=== PATIENT | male | born 1945 | race Caucasian/White ===

== ENCOUNTER 2017-01-04 09:06 | Emergency (ER) | payer OTHER ==
--- NOTE | 2017-01-04 09:13 | EDPHY ---
HPI/HX/ROS/PE/MDM Narrative: CHIEF COMPLAINT: Abdominal pain HPI: This patient is a 71 year old man presenting with acute intermittent abdominal pain, onset two nights ago. The pain is localized periumbilically and left to the umbilicus. It woke him from sleep two nights ago and last night and is described as dull and rated 3-4/10 in severity. The pain kept him awake for 1 -2 hours. He continues to have full pain this morning, rated 1-2/10 in severity. It is associated with abdominal bloating, which has been a longstanding issue (over one year) for him. He denies nausea, vomiting, diarrhea , or fever. He has had normal bowel movements. His routine colonoscopies, last one year ago, were all normal. REVIEW OF SYSTEMS: Aside from elements discussed in the HPI, a comprehensive 10-point review of systems was reviewed and is negative. PMH: L4/5 laminectomy and decompression, atrial fibrillation s/p ablations (Perez and Briana), HTN, hip replacement SOCIAL HISTORY: PCP is Dr. Maldonado. Non-smoker. PHYSICAL EXAM: General:Patient is alert, in no acute distress. ENT:Eyes are normal to inspection. ENT inspection normal. Neck: Normal inspection. Full range of motion. Respiratory:No respiratory distress. Breath sounds normal bilaterally. Cardiovascular: Regular rate and rhythm. Strong peripheral pulses. Normal cap refill. Abdomen: Left upper quadrant discomfort/tenderness to palpation, no guarding or rebound. There are no peritoneal signs. There are normal bowel sounds. Back: Normal to inspection. No tenderness to palpation. Skin: Normal color. No rash. Warm and dry. Extremities: Normal appearance. Full range of motion. Neuro: Oriented x3. Normal motor function. Normal sensory function. ED Course: IMAGING Study: CT of the Abdomen Pelvis w/ IV contrast Indication: Abdominal pain Results: The results of the study are: No acute findings. No significant constipation. The study was read by the radiologist, Dr. Llamas. I viewed the images myself on the PACS system. No acute etiology diagnosed. Patient referred to gastroenterology. I also recommended Zantac, as directed [id number]. MDM: This patient presents with fairly longstanding abdominal discomfort that has been getting worse recently. On exam, his vital signs are normal and his abdomen is relatively benign. His lab work is normal, showing no evidence of anemia, pancreatitis or hepatitis. We performed a CT scan of his abdomen and pelvis which is negative for bowel obstruction, bowel perforation, appendicitis or diverticulitis. His aorta does not appear to be aneurysmal. On re- evaluation, the patient is comfortable and he is comfortable with the plan for outpatient follow-up. The etiology of his abdominal pain is unclear. - Data Points Laboratory Results: Laboratory Results 01/04/17 09:30 01/04/17 01/04/17 01/04/17 09:31 09:30 09:30 WBC 7.29 10^3/uL 10^3/uL (3.80-9.50) RBC 4.84 10^6/uL 10^6/uL (4.40-6.38) Hgb 15.8 g/dL g/dL (13.7-17.5) POC Hgb 16.3 gm/dL gm/dL (14.5-17.3) Hct 44.8 % % (40.0-51.0) POC Hct 48 % % (42.8-50.6) MCV 92.6 fL fL (81.5-99.8) MCH 32.6 pg pg (27.9-34.1) MCHC 35.3 g/dL g/dL (32.4-36.7) RDW 12.3 % % (11.5-15.2) Plt Count 212 10^3/uL 10^3/uL (150-400) MPV 10.8 fL fL (8.7-11.7) Neut % (Auto) 67.4 % % (39.3-74.2) Lymph % (Auto) 21.4 % % (15.0-45.0) [place] % (Auto) 10.0 % % (4.5-13.0) Eos % (Auto) 0.4 % L % (0.6-7.6) Baso % (Auto) 0.4 % % (0.3-1.7) Nucleat RBC Rel Count 0.0 % % (0.0-0.2) Absolute Neuts (auto) 4.91 10^3/uL 10^3/uL (1.70-6.50) Absolute Lymphs (auto) 1.56 10^3/uL 10^3/uL (1.00-3.00) Absolute Monos (auto) 0.73 10^3/uL 10^3/uL (0.30-0.80) Absolute Eos (auto) 0.03 10^3/uL 10^3/uL (0.03-0.40) Absolute Basos (auto) 0.03 10^3/uL 10^3/uL (0.02-0.10) Absolute Nucleated RBC 0.00 10^3/uL 10^3/uL (0-0.01) Immature Gran % 0.4 % % (0.0-1.1) Immature Gran # 0.03 10^3/uL 10^3/uL (0.00-0.10) POC Sodium 140 mEq/L mEq/L (134-144) POC Potassium 3.9 mEq/L mEq/L (3.3-5.0) POC Chloride 99 mEq/L mEq/L (96-108) POC BUN 13 mg/dL mg/dL (7-23) POC Creatinine 1.0 mg/dL mg/dL (0.8-1.5) POC Glucose 128 mg/dL H mg/dL (70-100) Total Bilirubin 1.0 mg/dL mg/dL (0.1-1.4) Conjugated Bilirubin 0.3 mg/dL mg/dL (0.0-0.5) Unconjugated Bilirubin 0.7 mg/dL mg/dL (0.0-1.1) AST 26 IU/L IU/L (17-59) ALT 35 IU/L IU/L (21-72) Alkaline Phosphatase 51 IU/L IU/L (38-126) Total Protein 7.6 g/dL g/dL (6.3-8.2) Albumin 4.6 g/dL g/dL (3.5-5.0) Lipase 179.0 IU/L IU/L (23-300) Medications Given: Discontinued Medications Sodium Chloride (Ns) 1,000 mls @ 0 mls/hr IV ONCE ONE PRN Reason: Wide Open Stop: 01/04/17 09:28 Last Admin: 01/04/17 09:30 Dose: 1,000 mls Point of Care Test Results: 01/04/17 09:31 POC Sodium 140 POC Potassium 3.9 POC Chloride 99 POC BUN 13 POC Creatinine 1.0 POC Glucose 128 H General Time Seen by Provider: 01/04/17 09:11 Initial Vital Signs: Initial Vital Signs Temperature (C) 36.9 C 01/04/17 09:08 Heart Rate 79 01/04/17 09:08 Respiratory Rate 18 01/04/17 09:08 Blood Pressure 164/87 H 01/04/17 09:08 O2 Sat (%) 96 01/04/17 09:08 O2 Delivery Mode Room Air Allergies/Adverse Reactions: No Known Allergies Allergy (Unverified 03/21/16 12:57) Home Medications: Medication Instructions Recorded Aspirin [Aspirin 81mg (*)] 81 mg PO DAILY 01/04/17 Dutasteride [Avodart 0.5 MG (*)] 0.5 mg PO 01/04/17 Fluticasone Hfa 110 Mcg [Flovent 12 gm IH 01/04/17 Hfa] Hydrochlorothiazide [HCTZ (*)] 25 mg PO DAILY 01/04/17 Metoprolol Tartrate [Lopressor 25 25 mg PO BID 01/04/17 mg (*)] Ramipril [Altace 5mg (*)] 10 mg PO 01/04/17 Simvastatin [Zocor] 40 mg PO 01/04/17 Tadalafil [Cialis] 5 mg PO 01/04/17 Departure - Departure Disposition: Home, Routine, Self-Care Clinical Impression: Abdominal pain Qualifiers: Abdominal location: periumbilical Qualified Code(s): R10.33 - Periumbilical pain Condition: Good Instructions: Acute Abdominal Pain (ED), Gas and Bloating (ED), Abdominal Pain (ED) Additional Instructions: Take [id number] Zantac, as directed. Follow up with gastroenterology for further evaluation. Return to the emergency department if you experience increasing abdominal pain, intractable vomiting, fever, or other concerns. Referrals: Shalini Maldonado MD [Primary Care Provider] - As per Instructions Yobani Osborne [place] [place] - As per Instructions ( Gastroenterology) Report Scribed for: Vega Valentino Report Scribed by: Jena Vogel Date of Report: 01/04/17 Time of Report: 09:13 Physician Review and Approval Statement: Portions of this note were transcribed by an ED scribe. I personally performed the history, physical exam, and medical decision making; and confirm the accuracy of the information in the transcribed note.
[2017-01-04] MEDS ORDERED: NS 1,000 ML IV ONE (09:27)
[2017-01-04] MEDS ORDERED: IOPAMIDOL (ISOVUE-300) 100 ML BTL IV ONE (09:35)
[2017-01-04 09:41] LABS: % IMMATURE GRANULYOCYTES 0.4 % (0.0-1.1); ABSOLUTE IMMATURE GRANULOCYTES 0.03 10^3/uL (0.00-0.10); ADD DIFF? NO; ADD MORPH? NO; ADD SCAN? NO; ATYPICAL LYMPHOCYTE FLAG 0 (0-99); FRAGMENT RBC FLAG 0 (0-99); HEMATOCRIT 44.8 % (40.0-51.0); HEMOGLOBIN 15.8 g/dL (13.7-17.5); LEFT SHIFT FLG 0 (0-99); LIPEMIA HEMOLYSIS FLAG 90 (0-99); MEAN CELL HEMOGLOBIN 32.6 pg (27.9-34.1); MEAN CELL HEMOGLOBIN CONCENTR. 35.3 g/dL (32.4-36.7); MEAN CELL VOLUME 92.6 fL (81.5-99.8); MEAN PLATELET VOLUME 10.8 fL (8.7-11.7); PLATELET CLUMPS FLAG 0 (0-99); PLATELET COUNT 212 10^3/uL (150-400); RED BLOOD CELL COUNT 4.84 10^6/uL (4.40-6.38); RED CELL DISTRIBUTION WIDTH 12.3 % (11.5-15.2)
[2017-01-04 09:55] LABS: ALBUMIN 4.6 g/dL (3.5-5.0); BILIRUBIN-CONJUGATED 0.3 mg/dL (0.0-0.5); BILIRUBIN-UNCONJUGATED 0.7 mg/dL (0.0-1.1); TOTAL PROTEIN 7.6 g/dL (6.3-8.2)
[2017-01-04 10:54] VITALS: BP 155/73; PULSE 74; RESP 15; TEMP 98.1; O2SAT 94
== END 2017-01-04 10:54 | disposition home or self-care (01) ==
DX: R10.33 Periumbilical pain (principal); I10 Essential (primary) hypertension; Z79.82 Long term (current) use of aspirin
CPT/HCPCS: 74177; 96360; 99285; Q9967; 82947-QW

== ENCOUNTER → 2017-01-14 | Outpatient (CLI) | payer OTHER | LOC: BMCIMAGING 14:29 | PROVIDERS: ATTEND Podiatrist Foot & Ankle Surgery | DX: M79.674 Pain in right toe(s) (principal); M79.89 Other specified soft tissue disorders; M10.071 Idiopathic gout, right ankle and foot | CPT/HCPCS: 86812-90 ==

== ENCOUNTER → 2017-01-22 | Outpatient (CLI) | payer OTHER | LOC: FIMAGING 09:25 | PROVIDERS: ATTEND Physician Assistant Medical | DX: I25.10 Atherosclerotic heart disease of native coronary artery without angina pectoris (principal); I10 Essential (primary) hypertension; Z95.0 Presence of cardiac pacemaker ==

== ENCOUNTER 2017-10-29 17:18 | Emergency (ER) | payer OTHER ==
[2017-10-29 17:22] VITALS: RESP 16; TEMP 97.7
--- NOTE | 2017-10-29 17:30 | CPEKG ---
Heart Rate: 76 RR Interval: 789 P-R Interval: 212 QRSD Interval: 114 QT Interval: 408 QTC Interval: 459 P [place]: 108 QRS [place]: -83 T Wave [place]: 66 EKG Severity - ABNORMAL ECG - EKG Impression: SINUS RHYTHM EKG Impression: LEFT ANTERIOR FASCICULAR BLOCK EKG Impression: LEFT VENTRICULAR HYPERTROPHY Electronically Signed By: Collette Amin 29-Oct-2017 20:43:13
--- NOTE | 2017-10-29 17:37 | EDPHY ---
H & P Time Seen by Provider: 10/29/17 17:28 HPI/ROS: CHIEF COMPLAINT: Facial numbness HISTORY OF PRESENT ILLNESS: This patient is a 72 year old male with history of hypertension and TIA complaining of right-sided facial numbness. He was driving home from [employer] this afternoon and noticed a sensation of mental fogginess. Associated with slight nausea and loss of appetite. He then developed numbness and a mild burning sensation to right cheek. Later, his was making dinner but he did not have appetite and his numbness persisted. Currently, the burning sensation and feeling of mental "fogginess" persist. He denies numbness or paresthesias in his extremities. He takes daily ASA but is not otherwise anticoagulated. No headache, chest pain, shortness of breath, vomiting, diarrhea, or other associated symptoms. REVIEW OF SYSTEMS: A 10 point review of systems was performed and is negative with the exception of the elements mentioned in the history of present illness. Past Medical/Surgical History: 1. History of atrial fibrillation s/p 5 ablations, now resolved. Pacer in place. 2. History of TIA 3. Spinal surgery 4. Hip replacements Social History: Nonsmoker. . Lives in [place]. Smoking Status: Never smoked Physical Exam: General Appearance: Alert, pleasant Eyes: Pupils equal and round, no conjunctival pallor or injection ENT, Mouth: Mucous membranes moist Neck: Normal inspection Respiratory: Lungs are clear to auscultation Cardiovascular: Regular rate and rhythm Gastrointestinal: Abdomen is soft and non-tender Neurological: Alert, oriented x3, cranial nerves II through XII intact, motor 5 /5, decreased sensation to light touch over 3cm area on right cheek, sensation to light touch otherwise intact, normal gait Skin: Warm and dry, no rash Extremities: Nontender, no pedal edema Psychiatric: Mood and affect normal Constitutional: Initial Vital Signs Temperature (C) 36.5 C 10/29/17 17:20 Heart Rate 82 10/29/17 17:20 Respiratory Rate 16 10/29/17 17:20 Blood Pressure 186/105 H 10/29/17 17:20 O2 Sat (%) 95 10/29/17 17:20 O2 Delivery Mode Room Air Allergies/Adverse Reactions: No Known Allergies Allergy (Verified 10/29/17 17:19) Home Medications: Medication Instructions Recorded Aspirin [Aspirin 81mg (*)] 81 mg PO DAILY 01/04/17 Dutasteride [Avodart 0.5 MG (*)] 0.5 mg PO 01/04/17 Fluticasone Hfa 110 Mcg [Flovent 12 gm IH 01/04/17 Hfa] Hydrochlorothiazide [HCTZ (*)] 25 mg PO DAILY 01/04/17 Metoprolol Tartrate [Lopressor 25 25 mg PO BID 01/04/17 mg (*)] Ramipril [Altace 5mg (*)] 10 mg PO 01/04/17 Simvastatin [Zocor] 40 mg PO 01/04/17 Tadalafil [Cialis] 5 mg PO 01/04/17 Medical Decision Making - Diagnostics EKG Interpretation: EKG interpreted by me reveals normal sinus rhythm, rate 76, LVH. Imaging Results: Head CT 10/29/17 17:28 Impression: There is no acute intracranial abnormality identified on this unenhanced CT evaluation. If there is further clinical concern regarding the patient's symptoms, MR imaging is suggested, if not otherwise contraindicated. Findings were discussed with COLLETTE AMIN MD at 18:10, on 10/29/2017. Imaging: Discussed imaging studies w/ rail car repair carman Radiologist ED Course/Re-evaluation: 72 y/o male with history of HTN and prior TIA presents with right-sided facial numbness and burning sensation. Exam reveals decreased sensation to light touch over 3cm area on right cheek. Very small area of numbness, doubt TIA, especially with other sx of fogginess and nausea, though TIA possible. Plan for EKG, CT head, labs including CBC, chemistries, troponin. Old medical record reviewed, carotid sono 01/1917: mild bilateral atherosclerosis at the carotid bulbs, no flow limiting stenosis. 18:[address] Gabriel, radiologist. CT head negative for acute processes. CT results d/w pt. 18:45 Reassessed patient. Continues to feel odd sensation in left cheek. Neuro exam remains unchanged. I doubt TIA/CVA, given limited area of distribution. Will have pt continue ASA, f/u PCP. Plan to d/c home in good condition. Follow up and return precautions discussed. He is comfortable with this plan. Differential Diagnosis: Altered mental status including but not limited to hypoglycemia, infectious process, electrolyte abnormality, head injury and intoxicants. - Data Points Laboratory Results: Laboratory Results 10/29/17 17:30 10/29/17 17:30 Departure - Departure Disposition: Home, Routine, Self-Care Clinical Impression: Right facial numbness Condition: Good Instructions: Transient Ischemic Attack (ED), Paresthesia (ED), Stroke (DC) Additional Instructions: 1. Attached, please find further information regarding strokes and TIAs ( transient ischemic attack, also known as "mini-strokes"). 2. Follow up with your primary care provider for further evaluation. Continue taking Aspirin as usual. 3. Return to the emergency department for increasing or persistent numbness, weakness or numbness in your extremities, increased confusion, severe headache, difficulty speaking, or other worsening of condition. Referrals: Shalini Maldonado MD [[facility] [facility] [place] - As per Instructions Report Scribed for: Collette Amin Report Scribed by: Ivonne Weiss Date of Report: 10/29/17 Time of Report: 17:37 Physician Review and Approval Statement: 10/29/17 17:37 Portions of this note were transcribed by a medical sales consultant. I personally performed a history, physical exam, medical decision making, and confirmed accuracy of information the transcribed note.
[2017-10-29 17:41] LABS: PLATELET COUNT 195 10^3/uL (150-400)
[2017-10-29 18:18] VITALS: BP 148/82; PULSE 60; O2SAT 96
== END 2017-10-29 18:59 | disposition home or self-care (01) ==
DX: R20.0 Anesthesia of skin (principal); I10 Essential (primary) hypertension; Z79.82 Long term (current) use of aspirin

== ENCOUNTER → 2018-04-13 | Outpatient (CLI) | payer OTHER | LOC: BMCIMAGING 09:12 | PROVIDERS: ATTEND Physician Assistant | DX: Z96.643 Presence of artificial hip joint, bilateral (principal) ==

== ENCOUNTER 2018-07-13 06:26 | Day surgery (SDC) | payer OTHER ==
[2018-07-13] MEDS ORDERED: ASPIRIN EC 325 MG TAB PO ONE ×2 (06:31→07:04)
[2018-07-13] MEDS ORDERED: diphenhydrAMINE 25 MG CAP PO ONE ×2 (06:31→07:04)
[2018-07-13] MEDS ORDERED: FAMOTIDINE 20 MG TAB PO ONE (06:31)
[2018-07-13] MEDS ORDERED: NS 1,000 ML IV ONE (06:31)
[2018-07-13] MEDS ORDERED: DIAZEPAM 5 MG TAB PO ONE (06:31)
[2018-07-13] MEDS ORDERED: FAMOTIDINE 20 MG TAB ONE (07:04)
[2018-07-13] MEDS ORDERED: DIAZEPAM 5 MG TAB ONE (07:05)
[2018-07-13 07:06] LABS: PLATELET COUNT 200 10^3/uL (150-400)
[2018-07-13 07:13] LABS: INR 0.97 (0.83-1.16); PROTIME(PATIENT) 13.1 SEC (12.0-15.0)
[2018-07-13] MEDS ORDERED: LIDOCAINE 1% 300 MG/30 ML SDV ONE (07:55)
[2018-07-13] MEDS ORDERED: fentaNYL 100 MCG/2 ML INJ ONE (07:56)
[2018-07-13] MEDS ORDERED: IOPAMIDOL (ISOVUE-370) 150 ML BTL IV ONE (07:56)
[2018-07-13] MEDS ORDERED: MIDAZOLAM 2 MG/2 ML VIAL ONE (07:56)
--- NOTE | 2018-07-13 08:21 | PDPROPOC ---
Sedation Plan of Care Sedation Plan of Care: vital signs stable, mental status noted, patient educated of risks, benefits, alternatives, patient can tolerate sedation ASA Classification: ASA 2 Planned drugs: fentanyl, midazolam Mallampati Score: Class 2 Mallampati Reference Image: Patient passed 3-3-2 rule?: Yes
--- NOTE | 2018-07-13 08:21 | PDHPUP ---
History & Physical Update H&P update statement: This history and physical update is based on an assessment of the patient which was completed after admission or registration (within 24 hours), but prior to the surgery/procedure. H&P update: H&P reviewed & patient examined, no change in patient's condition since H&P completed
--- NOTE | 2018-07-13 08:45 | CPEKG ---
Test Reason : OPEN Blood Pressure : / mmHG Vent. Rate : 077 BPM Atrial Rate : 077 BPM P-R Int : 201 ms QRS Dur : 119 ms QT Int : 413 ms P-R-T Axes : 115 -82 062 degrees QTc Int : 468 ms Sinus rhythm Left anterior fascicular block Probable left ventricular hypertrophy ST elevation, consider inferior injury First degree AVB ST/T changes are new in comparison to prior (from Oct 2017) Confirmed by Quentin Ramey ([id number]) on 07/13/2018 8:45:51 AM Referred By: Confirmed By:Quentin Ramey
[2018-07-13] MEDS ORDERED: OXYCODONE/APAP 5/325 TAB PO PRN (09:30)
[2018-07-13] MEDS ORDERED: ATROPINE SULFATE 1 MG/10 ML SYR IVP PRN (09:30)
[2018-07-13] MEDS ORDERED: NITROGLYCERIN 0.4 MG BTL SL PRN (09:30)
[2018-07-13] MEDS ORDERED: ONDANSETRON 4 MG/2 ML VIAL IVP PRN (09:30)
[2018-07-13] MEDS ORDERED: HYDROCODONE/APAP 5/325 TAB PO PRN (09:30)
--- NOTE | 2018-07-13 10:05 | CPIP ---
DATE OF PROCEDURE: 07/13/2018 INDICATION FOR PROCEDURE: Abnormal exercise pharmacologic nuclear stress test with evidence of progr essive anterior wall ischemia. PROCEDURES PERFORMED: 1. Left heart catheterization. 2. Left coronary angiography. 3. Right coronary angiography. 4. Left ventriculogram. 5. Right common femoral artery angiography. 6. Angio-Seal deployment. DESCRIPTION OF PROCEDURE: After informed consent was obtained, the patient was brought to the [facility] catheterization lab where he was prepped and draped in a sterile fashion. Using 1% lidocaine, the right groin was anesthetized. Using the micropuncture modified Seldinger technique, a 6-Vietnamese karrie ter was placed into the right common femoral artery without complications. JL4 catheter was used to take images of the left coronary anatomy in multiple projections. The JL4 catheter was exchanged ove r a guidewire for a JR4 catheter. The JR4 catheter was used to take images of the right coronary osman dex in multiple projections. The JR4 catheter was exchanged over a guidewire for an angled pigtail catheter. The angled pigtail catheter was used to cross the aortic valve. LVEDP was assessed. A le ft ventriculogram was performed. Aortic valve gradient was assessed on pull-back. The angled pigtai l catheter was removed over a guidewire without complications. Imaging of the right common femoral a rtery was obtained. Findings demonstrated appropriate placement of the 6-Vietnamese sheath above the bif urcation of the right common femoral artery and below the inguinal ligament. FINDINGS: 1. Left main normal size and caliber bifurcates into left anterior descending and left circumflex co ronary artery. 2. There was no evidence of coronary disease within the left main. 3. The left anterior descending demonstrates some mild luminal irregularities, 10% to 20%, in the pr oximal segment. No evidence of flow-limiting coronary artery disease. There is a moderate 1st diago nal branch with no evidence of coronary disease. 4. The circumflex vessel is a nondominant vessel. There are mild luminal irregularities within the circumflex vessel. Obtuse marginal branch with mild luminal irregularities. 5. The right coronary artery is a dominant artery that bifurcates into the PDA and PLV branches. Th ere are mild luminal irregularities within the right coronary artery with no flow-limiting coronary a rtery disease. HEMODYNAMICS: 1. LVEF 65%. 2. LVEDP 22 mmHg. 3. Aortic valve gradient: None. CONCLUSION: 1. Mild nonobstructive coronary artery disease. 2. Normal left ventricular function. 3. Mildly elevated LVEDP at 22 mmHg. PLAN: 1. We will continue current outpatient medications. 2. The patient will recover in CVC and return home. 3. He is scheduled to follow up with me on Friday, in the office. /[id number]/[id number]
== END 2018-07-13 14:06 | disposition home or self-care (01) ==
LOC: FCATH 06:26
PROVIDERS: ATTEND Internal Medicine Cardiovascular Disease
DX: I25.10 Atherosclerotic heart disease of native coronary artery without angina pectoris (principal); R94.39 Abnormal result of other cardiovascular function study; I10 Essential (primary) hypertension; E78.5 Hyperlipidemia, unspecified; I48.0 Paroxysmal atrial fibrillation; I49.5 Sick sinus syndrome; I44.4 Left anterior fascicular block; G47.30 Sleep apnea, unspecified; Z79.01 Long term (current) use of anticoagulants; Z82.49 Family history of ischemic heart disease and other diseases of the circulatory system; Z95.0 Presence of cardiac pacemaker
CPT/HCPCS: C1760; J1644; J2250; J3010; Q9967

== ENCOUNTER 2019-04-02 11:14 | Day surgery (SDC) | payer OTHER | END 2019-04-02 15:48 | disposition home or self-care (01) | LOC: FCATH 11:14 ==